=== PATIENT | male | born 1990 | race Caucasian/White ===

== ENCOUNTER 2017-10-11 00:05 | Inpatient (IN) | payer OTHER ==
[2017-10-11] MEDS ORDERED: FENTANYL CITRATE INJ/PF 100 MCG/2 ML AMPUL ONE ×3 (00:08→05:30)
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
[2017-10-11] MEDS ORDERED: NORMAL SALINE 250 ML IV PRN ×2 (00:10)
[2017-10-11] MEDS ORDERED: MIDAZOLAM 2 MG/2 ML INJ ONE ×2 (00:25→05:30)
[2017-10-11] MEDS ORDERED: CEFAZOLIN 1 GM/D5W RTU 1 GM/50 ML RTUPB IV ONE (00:31)
[2017-10-11] MEDS ORDERED: MIDAZOLAM 2 MG/2 ML INJ IV ONE (00:31)
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
[2017-10-11 01:03] LABS: ABSOLUTE BASOPHILS # (AUTO) 0.1 10^3/uL (0.0-0.2); ABSOLUTE EOSINOPHILS # (AUTO) 0.1 10^3/uL (0.0-0.6); ABSOLUTE LYMPHOCYTES (AUTO) 2.9 10^3/uL (0.5-4.7); ABSOLUTE MONOCYTES (AUTO) 0.6 10^3/uL (0.1-1.4); ABSOLUTE NEUT (AUTO) 4.3 10^3/uL (1.7-8.2); EOSINOPHILS % (AUTO) 1.1 % (0-6); HEMATOCRIT 41.5 % (37.9-51.0); HEMOGLOBIN 14.1 g/dL (13.5-17.0); HGB HCT DIFFERENCE 0.8; LYMPHOCYTES % (AUTO) 36.3 % (13-45); MEAN CORPUSCULAR HEMOGLOBIN 31.9 pg (27.0-33.4); MEAN CORPUSCULAR HGB CONC 33.9 g/dL (32.0-36.0); MEAN CORPUSCULAR VOLUME 94 fl (80-97); RED BLOOD COUNT 4.41 10^6/uL (4.35-5.55); RED CELL DISTRIBUTION WIDTH 12.9 % (11.5-14.0); SEGMENTED NEUTROPHILS % (AUTO) 53.6 % (42-78)
[2017-10-11] MEDS ORDERED: HYDROMORPHONE HCL INJ/PF 2 MG/ML AMPULE IV PRN (01:19)
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
[2017-10-11] MEDS ORDERED: HYDROMORPHONE HCL INJ/PF 2 MG/ML AMPULE IV ONE (02:30)
[2017-10-11] MEDS ORDERED: FENTANYL CITRATE INJ/PF 100 MCG/2 ML AMPUL IV ONE (02:30)
[2017-10-11] MEDS ORDERED: NORMAL SALINE 1000 ML 1,000 ML IV ONE (02:31)
[2017-10-11] MEDS ORDERED: RINGERS SOLUTION,LACTATED 1,000 ML IV PRN (04:06)
[2017-10-11] MEDS ORDERED: CEFAZOLIN 2 GM/D5W RTU 2 GM/50 ML RTUPB IV PRN (04:09)
[2017-10-11] MEDS: HYDROMORPHONE HCL INJ/PF 2 MG/ML AMPULE IV PRN ×5 (04:29→20:25)
[2017-10-11] MEDS ORDERED: DEXAMETHASONE SOD PHOSPHATE INJ 4 MG/1 ML VIAL ONE (05:30)
[2017-10-11] MEDS ORDERED: IBUPROFEN INJ 800 MG/8 ML VIAL IV ONE (05:31)
[2017-10-11] MEDS ORDERED: ONDANSETRON HCL INJ/PF 4 MG/2 ML SDV ONE (05:31)
[2017-10-11] MEDS ORDERED: PROPOFOL INJ 200 MG/20 ML VIAL IV ONE (05:31)
[2017-10-11] MEDS ORDERED: MORPHINE SULFATE 10 MG/ML INJ ONE (05:31)
[2017-10-11] MEDS ORDERED: CEFAZOLIN INJ 1 GM VIAL ONE (06:02)
[2017-10-11] MEDS ORDERED: BUPIVACAINE HCL 0.5%-EPI 1:200000 INJ/PF 30 ML VIAL INJ ONE (06:04)
[2017-10-11] MEDS ORDERED: PROMETHAZINE HCL INJ 25 MG/1 ML VIAL IV PRN ×2 (06:14)
[2017-10-11] MEDS ORDERED: MEPERIDINE HCL/PF INJ 25 MG/1 ML DISP.SYRIN IV PRN (06:14)
[2017-10-11] MEDS ORDERED: DIPHENHYDRAMINE HCL 50 MG/ML VIAL IV PRN (06:14)
[2017-10-11] MEDS ORDERED: FENTANYL CITRATE INJ/PF 100 MCG/2 ML AMPUL IV PRN ×3 (06:14)
[2017-10-11] MEDS ORDERED: MORPHINE SULFATE 10 MG/ML INJ IV PRN (06:14)
[2017-10-11] MEDS ORDERED: BUPIVACAINE HCL 0.5%-EPI 1:200000 INJ/PF 30 ML VIAL ONE (06:15)
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
[2017-10-11] MEDS ORDERED: SUCCINYLCHOLINE CHLORIDE INJ 200 MG/10 ML VIAL ONE (07:29)
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
[2017-10-11] MEDS: OXYCODONE HCL IR 5 MG TABLET PO PRN ×2 (14:23→23:20)
[2017-10-11] MEDS: CEFAZOLIN 2 GM/D5W RTU 2 GM/50 ML RTUPB IV SCH ×2 (14:23→22:17)
[2017-10-11] MEDS ORDERED: ACETAMINOPHEN 325 MG TABLET PO ONE (15:00)
[2017-10-11] MEDS ORDERED: GABAPENTIN 300 MG CAPSULE PO ONE (15:00)
[2017-10-11] MEDS: GABAPENTIN 300 MG CAPSULE PO SCH (22:18)
[2017-10-11] MEDS: RIVAROXABAN 10 MG TABLET PO SCH (22:18)
[2017-10-11] MEDS: ACETAMINOPHEN 325 MG TABLET PO SCH (22:18)
[2017-10-12] MEDS: HYDROMORPHONE HCL INJ/PF 2 MG/ML AMPULE IV PRN (04:13)
[2017-10-12] MEDS: ACETAMINOPHEN 325 MG TABLET PO SCH ×3 (05:55→21:22)
[2017-10-12] MEDS: GABAPENTIN 300 MG CAPSULE PO SCH ×3 (05:56→21:22)
[2017-10-12 06:16] LABS: ABSOLUTE LYMPHOCYTES (AUTO) 2.3 10^3/uL (0.5-4.7); ABSOLUTE MONOCYTES (AUTO) 1.5 10^3/uL (0.1-1.4); ABSOLUTE NEUT (AUTO) 5.6 10^3/uL (1.7-8.2); BASOPHILS % (AUTO) 0.3 % (0-2); EOSINOPHILS % (AUTO) 0.3 % (0-6); HEMATOCRIT 29.3 % (37.9-51.0); HGB HCT DIFFERENCE 1.6; LYMPHOCYTES % (AUTO) 24.2 % (13-45); MEAN CORPUSCULAR HEMOGLOBIN 32.4 pg (27.0-33.4); MEAN CORPUSCULAR HGB CONC 35.1 g/dL (32.0-36.0); MEAN CORPUSCULAR VOLUME 92 fl (80-97); MONOCYTES % (AUTO) 16.2 % (3-13); RED BLOOD COUNT 3.17 10^6/uL (4.35-5.55); RED CELL DISTRIBUTION WIDTH 12.9 % (11.5-14.0); WHITE BLOOD COUNT 9.5 10^3/uL (4.0-10.5)
[2017-10-12 06:22] LABS: HEMOGLOBIN 10.3 g/dL (13.5-17.0)
[2017-10-12 06:26] LABS: ANION GAP 9 (5-19); BLOOD UREA NITROGEN 10 mg/dL (7-20); CALCIUM 8.9 mg/dL (8.4-10.2); CARBON DIOXIDE 30 mmol/L (22-30); CHLORIDE 104 mmol/L (98-107); CREATININE RESULT 0.73 mg/dL (0.52-1.25); GLUCOSE 105 mg/dL (75-110); POTASSIUM 4.2 mmol/L (3.6-5.0); SODIUM 142.7 mmol/L (137-145)
[2017-10-12] MEDS: OXYCODONE HCL IR 5 MG TABLET PO PRN ×3 (08:20→20:12)
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
[2017-10-12] MEDS: RIVAROXABAN 10 MG TABLET PO SCH (21:22)
[2017-10-13] MEDS: OXYCODONE HCL IR 5 MG TABLET PO PRN ×4 (02:03→21:41)
[2017-10-13] MEDS ORDERED: MORPHINE SULFATE 10 MG/5 ML ORAL SOLUTION UDCUP PO ONE (05:15)
[2017-10-13] MEDS: ACETAMINOPHEN 325 MG TABLET PO SCH ×3 (05:17→21:40)
[2017-10-13] MEDS: GABAPENTIN 300 MG CAPSULE PO SCH ×3 (05:17→21:41)
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
[2017-10-13] MEDS: CYCLOBENZAPRINE HCL 10 MG TABLET PO PRN ×2 (13:09→21:04)
[2017-10-13 15:57] LABS: ALANINE AMINOTRANSFERASE 57 U/L (21-72); ALBUMIN 3.8 g/dL (3.5-5.0); ALKALINE PHOSPHATASE 55 U/L (38-126); ANION GAP 10 (5-19); ASPARTATE AMINO TRANSFERASE 40 U/L (17-59); BILIRUBIN,DIRECT 0.3 mg/dL (0.0-0.4); BILIRUBIN,TOTAL 0.8 mg/dL (0.2-1.3); BLOOD UREA NITROGEN 9 mg/dL (7-20); CARBON DIOXIDE 32 mmol/L (22-30); CHLORIDE 97 mmol/L (98-107); CREATININE RESULT 0.89 mg/dL (0.52-1.25); GLUCOSE 132 mg/dL (75-110); POTASSIUM 4.1 mmol/L (3.6-5.0); SODIUM 139.3 mmol/L (137-145); TOTAL PROTEIN 6.5 g/dL (6.3-8.2)
[2017-10-13 16:32] LABS: C-REACTIVE PROTEIN 272.5 mg/L (<10.0)
[2017-10-13 17:57] LABS: ABSOLUTE BASOPHILS # (AUTO) 0.1 10^3/uL (0.0-0.2); ABSOLUTE LYMPHOCYTES (AUTO) 1.9 10^3/uL (0.5-4.7); ABSOLUTE MONOCYTES (AUTO) 1.5 10^3/uL (0.1-1.4); ABSOLUTE NEUT (AUTO) 5.5 10^3/uL (1.7-8.2); BASOPHILS % (AUTO) 0.6 % (0-2); EOSINOPHILS % (AUTO) 0.3 % (0-6); HEMOGLOBIN 10.7 g/dL (13.5-17.0); HGB HCT DIFFERENCE 1.1; LYMPHOCYTES % (AUTO) 21.2 % (13-45); MEAN CORPUSCULAR HEMOGLOBIN 32.2 pg (27.0-33.4); MEAN CORPUSCULAR HGB CONC 34.6 g/dL (32.0-36.0); MEAN CORPUSCULAR VOLUME 93 fl (80-97); MONOCYTES % (AUTO) 16.4 % (3-13); RED BLOOD COUNT 3.33 10^6/uL (4.35-5.55); RED CELL DISTRIBUTION WIDTH 12.9 % (11.5-14.0); SEGMENTED NEUTROPHILS % (AUTO) 61.5 % (42-78)
[2017-10-13] MEDS ORDERED: IBUPROFEN INJ 800 MG/8 ML VIAL IV ONE (19:37)
[2017-10-13] MEDS: IBUPROFEN 800 MG in NORMAL SALINE 250 ML IV SCH (20:04)
[2017-10-13] MEDS: RIVAROXABAN 10 MG TABLET PO SCH (21:41)
[2017-10-14] MEDS: IBUPROFEN 800 MG in NORMAL SALINE 250 ML IV SCH ×3 (03:37→22:05)
[2017-10-14] MEDS: OXYCODONE HCL IR 5 MG TABLET PO PRN ×3 (03:38→18:15)
[2017-10-14] MEDS: GABAPENTIN 300 MG CAPSULE PO SCH ×3 (05:17→22:03)
[2017-10-14] MEDS: ACETAMINOPHEN 325 MG TABLET PO SCH ×3 (05:17→22:04)
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
[2017-10-14] MEDS ORDERED: POLYETHYLENE GLYCOL 3350 POWDER 17 GM/1 PACKET PO ONE (19:15)
[2017-10-14] MEDS: CYCLOBENZAPRINE HCL 10 MG TABLET PO PRN (22:04)
[2017-10-14] MEDS: RIVAROXABAN 10 MG TABLET PO SCH (22:04)
[2017-10-14] MEDS: DIPHENHYDRAMINE HCL 25 MG CAPSULE PO PRN (22:30)
[2017-10-15] MEDS: OXYCODONE HCL IR 5 MG TABLET PO PRN ×4 (00:27→21:44)
[2017-10-15] MEDS: ACETAMINOPHEN 325 MG TABLET PO SCH ×3 (05:38→21:15)
[2017-10-15] MEDS: IBUPROFEN 800 MG in NORMAL SALINE 250 ML IV SCH ×3 (05:39→21:16)
[2017-10-15] MEDS: GABAPENTIN 300 MG CAPSULE PO SCH ×3 (05:39→21:15)
[2017-10-15] MEDS: CYCLOBENZAPRINE HCL 10 MG TABLET PO PRN ×2 (05:39→20:23)
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
[2017-10-15] MEDS: POLYETHYLENE GLYCOL 3350 POWDER 17 GM/1 PACKET PO SCH (09:33)
[2017-10-15] MEDS: DIPHENHYDRAMINE HCL 25 MG CAPSULE PO PRN (20:23)
[2017-10-15] MEDS: RIVAROXABAN 10 MG TABLET PO SCH (21:15)
[2017-10-15] MEDS ORDERED: DIPHENHYDRAMINE HCL 50 MG/ML VIAL IV ONE (22:00)
[2017-10-15] MEDS ORDERED: LORAZEPAM INJ 2 MG/1 ML VIAL IV PRN (22:37)
[2017-10-15] MEDS ORDERED: LORAZEPAM INJ 2 MG/1 ML VIAL IV ONE (22:45)
[2017-10-16] MEDS: GABAPENTIN 300 MG CAPSULE PO SCH ×2 (05:16→15:04)
[2017-10-16] MEDS: IBUPROFEN 800 MG in NORMAL SALINE 250 ML IV SCH ×2 (05:17→15:40)
[2017-10-16] MEDS: ACETAMINOPHEN 325 MG TABLET PO SCH ×2 (05:17→15:04)
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
[2017-10-16] MEDS: CYCLOBENZAPRINE HCL 10 MG TABLET PO PRN ×2 (07:44→15:10)
[2017-10-16] MEDS: POLYETHYLENE GLYCOL 3350 POWDER 17 GM/1 PACKET PO SCH (10:01)
[2017-10-16] MEDS: OXYCODONE HCL IR 5 MG TABLET PO PRN ×2 (12:05→18:05)
[2017-10-16 16:49] VITALS: BP 141/81
== END 2017-10-16 21:37 | disposition home health service (06) | DRG 482 ==
LOC: ER 00:05 → EH 01:36 → UNDOADMOB 01:36 → 4S 02:59 → EH 02:59 → OBSVTOIN 04:46 → 4S 04:46 → INTOOBSV 04:46
PROVIDERS: ADMIT Orthopaedic Surgery; ATTEND Orthopaedic Surgery
PROC: 0QSC04Z Reposition Left Lower Femur with Internal Fixation Device, Open Approach (ICD-10-PCS; principal; 2017-10-11 06:00)
DX: S72.4 Fracture of lower end of femur (principal); W32.0XXA Accidental handgun discharge, initial encounter; Y93.9 Activity, unspecified; Y92.9 Unspecified place or not applicable; Y99.9 Unspecified external cause status; Z88.2 Allergy status to sulfonamides; Z88.8 Allergy status to other drugs, medicaments and biological substances; Z72.0 Tobacco use
CPT/HCPCS: 01360; 36415; 80048; 80053; 85025; 85652; 86140; 86850; 86900; 86901; 86920; 96365; 96375; 99291; J0330; J0690; J1100; J1170; J1200; J1741; J2060; J2250; J2270; J2405; J2704; J3010; J3490; J7030; J7050

== ENCOUNTER 2017-12-18 08:12 | Day surgery (SDC) | payer OTHER ==
[2017-12-17 10:52] LABS: ABSOLUTE BASOPHILS # (AUTO) 0.1 10^3/uL (0.0-0.2); ABSOLUTE EOSINOPHILS # (AUTO) 0.1 10^3/uL (0.0-0.6); ABSOLUTE LYMPHOCYTES (AUTO) 2.7 10^3/uL (0.5-4.7); ABSOLUTE MONOCYTES (AUTO) 0.6 10^3/uL (0.1-1.4); ABSOLUTE NEUT (AUTO) 2.5 10^3/uL (1.7-8.2); EOSINOPHILS % (AUTO) 1.9 % (0-6); HEMATOCRIT 41.4 % (37.9-51.0); HEMOGLOBIN 13.7 g/dL (13.5-17.0); LYMPHOCYTES % (AUTO) 44.3 % (13-45); MEAN CORPUSCULAR HEMOGLOBIN 29.5 pg (27.0-33.4); MEAN CORPUSCULAR HGB CONC 33.1 g/dL (32.0-36.0); MEAN CORPUSCULAR VOLUME 89 fl (80-97); MONOCYTES % (AUTO) 10.7 % (3-13); PLATELET COUNT 394 10^3/uL (150-450); RED BLOOD COUNT 4.65 10^6/uL (4.35-5.55); RED CELL DISTRIBUTION WIDTH 14.1 % (11.5-14.0); SEGMENTED NEUTROPHILS % (AUTO) 42.1 % (42-78); TOTAL CELLS COUNTED % (AUTO) 100 %
[2017-12-17 10:55] LABS: APPEARANCE,URINE CLEAR; BILIRUBIN,URINE NEGATIVE (NEGATIVE); COLOR,URINE YELLOW; GLUCOSE, URINE NEGATIVE (NEGATIVE); KETONES,URINE NEGATIVE (NEGATIVE); LEUKOCYTE ESTERASE,URINE NEGATIVE (NEGATIVE); NITRITE,URINE NEGATIVE (NEGATIVE); PROTEIN,URINE 30 mg/dL (NEGATIVE); URINE SPECIFIC GRAVITY 1.029; UROBILINOGEN,URINE NEGATIVE mg/dL (<2.0)
[2017-12-17 11:24] LABS: ANION GAP 13 (5-19); BLOOD UREA NITROGEN 18 mg/dL (7-20); CALCIUM 10.6 mg/dL (8.4-10.2); CARBON DIOXIDE 28 mmol/L (22-30); CHLORIDE 103 mmol/L (98-107); GLUCOSE 93 mg/dL (75-110); POTASSIUM 4.8 mmol/L (3.6-5.0); SODIUM 143.5 mmol/L (137-145)
[~2017-12-18 08:12] MED LIST: CEFAZOLIN 2 GM/D5W RTU 2 GM/50 ML RTUPB IV PRN; LACTATED RINGERS 1000 ML IV PRN; LIDOCAINE 0.5% INJ-PF (5 MG/ML) 50 ML SDV SUBCUT PRN
[2017-12-18] MEDS ORDERED: BUPIVACAINE HCL 0.5%-EPI 1:200000 INJ/PF 30 ML VIAL ONE (10:25)
[2017-12-18] MEDS ORDERED: MIDAZOLAM 2 MG/2 ML INJ ONE (11:27)
[2017-12-18] MEDS ORDERED: PROPOFOL INJ 200 MG/20 ML VIAL IV ONE (11:28)
[2017-12-18] MEDS ORDERED: FENTANYL CITRATE INJ/PF 100 MCG/2 ML AMPUL ONE (11:28)
[2017-12-18] MEDS ORDERED: OXYCODONE-ACETAMINOPHEN 5-325 MG TABLET PO PRN ×2 (11:41)
[2017-12-18] MEDS ORDERED: PROMETHAZINE HCL INJ 25 MG/1 ML VIAL IV PRN ×2 (11:41)
[2017-12-18] MEDS ORDERED: DIPHENHYDRAMINE HCL 50 MG/ML VIAL IV PRN (11:41)
[2017-12-18] MEDS ORDERED: MEPERIDINE HCL/PF INJ 25 MG/1 ML DISP.SYRIN IV PRN (11:41)
[2017-12-18] MEDS ORDERED: MORPHINE SULFATE 10 MG/ML INJ IV PRN (11:41)
[2017-12-18] MEDS ORDERED: FENTANYL CITRATE INJ/PF 100 MCG/2 ML AMPUL IV PRN ×3 (11:41)
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
[2017-12-18] MEDS ORDERED: OXYCODONE HCL IR 5 MG TABLET PO PRN (12:48)
[2017-12-18] MEDS ORDERED: ONDANSETRON 4 MG TAB.RAPDIS SL PRN (12:48)
[2017-12-18] MEDS ORDERED: OXYCODONE HCL IR 5 MG TABLET ONE (12:59)
--- NOTE | 2017-12-18 13:46 | RADIOLOGY REPORT (SQ) ---
EXAM DESCRIPTION: KNEE LEFT 2 VIEWS; NO CHG FLUORO COMPLETED DATE/TIME: 12/18/2017 1:15 pm; 12/18/2017 1:14 pm REASON FOR STUDY: HARDWARE REMOVAL LEFT KNEE ASST WITH FLUORO IN OR S72.402C UNSP FX LOWER END OF L EFT FEMUR, INIT FOR OPN FX TY COMPARISON: 12/11/2016 left knee films FLUOROSCOPY TIME: Less than 2 seconds 1 digital C-arm image saved to PACS. TECHNIQUE: Intra-operative images acquired during surgical procedure to evaluate progress. NUMBER OF IMAGES: 1 digital C-arm image LIMITATIONS: None. FINDINGS: Intra procedural imaging and fluoro during stabilization of distal left femur intercondyla r fracture. Please see the operative report for further details IMPRESSION: Intra procedural imaging and fluoro COMMENT: Quality ID 145: Final reports for procedures using fluoroscopy that document radiation exp osure indices, or exposure time and number of fluorographic images (if radiation exposure indices are not available) Please consult full operative report of the attending physician for description of the procedure. TECHNICAL DOCUMENTATION: JOB ID: [id number] [employer]- All Rights Reserved
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
[2017-12-18 14:06] VITALS: BP 128/79
== END 2017-12-18 14:15 | disposition home or self-care (01) ==
LOC: OROUT 08:12
PROVIDERS: ATTEND Orthopaedic Surgery
PROC: 0QP704Z Removal of Internal Fixation Device from Left Upper Femur, Open Approach (ICD-10-PCS; principal; 2017-12-18 10:30)
DX: S72.402C Unspecified fracture of lower end of left femur, initial encounter for open fracture type IIIA, IIIB, or IIIC (principal); W34.00XA Accidental discharge from unspecified firearms or gun, initial encounter; Z47.2 Encounter for removal of internal fixation device; M79.605 Pain in left leg; F17.220 Nicotine dependence, chewing tobacco, uncomplicated; Z88.2 Allergy status to sulfonamides; Z88.8 Allergy status to other drugs, medicaments and biological substances; Z79.1 Long term (current) use of non-steroidal anti-inflammatories (NSAID); Z79.891 Long term (current) use of opiate analgesic; Z86.14 Personal history of Methicillin resistant Staphylococcus aureus infection
CPT/HCPCS: 36415; 85025; 80048; 81001; 73560; 20680; J2250; J3490; J3010; J2704; J0690; 01360

== ENCOUNTER → 2018-06-05 | Outpatient (CLI) | payer OTHER, BC ==
[2018-06-05 09:36] LABS: ABSOLUTE BASOPHILS # (AUTO) 0.1 10^3/uL (0.0-0.2); ABSOLUTE EOSINOPHILS # (AUTO) 0.4 10^3/uL (0.0-0.6); ABSOLUTE LYMPHOCYTES (AUTO) 2.3 10^3/uL (0.5-4.7); ABSOLUTE MONOCYTES (AUTO) 0.5 10^3/uL (0.1-1.4); ABSOLUTE NEUT (AUTO) 2.7 10^3/uL (1.7-8.2); BASOPHILS % (AUTO) 1.5 % (0-2); EOSINOPHILS % (AUTO) 5.9 % (0-6); HEMATOCRIT 39.6 % (37.9-51.0); HEMOGLOBIN 13.5 g/dL (13.5-17.0); LYMPHOCYTES % (AUTO) 38.4 % (13-45); MEAN CORPUSCULAR HEMOGLOBIN 31.4 pg (27.0-33.4); MEAN CORPUSCULAR HGB CONC 34.2 g/dL (32.0-36.0); MEAN CORPUSCULAR VOLUME 92 fl (80-97); MONOCYTES % (AUTO) 8.9 % (3-13); PLATELET COUNT 308 10^3/uL (150-450); RED BLOOD COUNT 4.31 10^6/uL (4.35-5.55); RED CELL DISTRIBUTION WIDTH 12.9 % (11.5-14.0); SEGMENTED NEUTROPHILS % (AUTO) 45.3 % (42-78); TOTAL CELLS COUNTED % (AUTO) 100 %
[2018-06-05 09:51] LABS: APPEARANCE,URINE SLIGHTLY-CLOUDY; BILIRUBIN,URINE NEGATIVE (NEGATIVE); COLOR,URINE YELLOW; GLUCOSE, URINE NEGATIVE (NEGATIVE); KETONES,URINE NEGATIVE (NEGATIVE); LEUKOCYTE ESTERASE,URINE NEGATIVE (NEGATIVE); NITRITE,URINE NEGATIVE (NEGATIVE); PROTEIN,URINE NEGATIVE (NEGATIVE); URINE SPECIFIC GRAVITY 1.028; UROBILINOGEN,URINE NEGATIVE mg/dL (<2.0)
[2018-06-05 09:58] LABS: ANION GAP 14 (5-19); BLOOD UREA NITROGEN 16 mg/dL (7-20); CALCIUM 9.1 mg/dL (8.4-10.2); CARBON DIOXIDE 26 mmol/L (22-30); CHLORIDE 103 mmol/L (98-107); GLUCOSE 152 mg/dL (75-110); POTASSIUM 3.7 mmol/L (3.6-5.0); SODIUM 142.9 mmol/L (137-145)
--- NOTE | 2018-06-05 10:09 | RADIOLOGY REPORT (SQ) ---
EXAM DESCRIPTION: CHEST PA/LATERAL COMPLETED DATE/TIME: 06/05/2018 9:28 am REASON FOR STUDY: PRE-OP COMPARISON: None. EXAM PARAMETERS: NUMBER OF VIEWS: two views TECHNIQUE: Digital Frontal and Lateral radiographic views of the chest acquired. RADIATION DOSE: NA LIMITATIONS: none FINDINGS: LUNGS AND PLEURA: No opacities, masses or pneumothorax. No pleural effusion. MEDIASTINUM AND HILAR STRUCTURES: No masses or contour abnormalities. HEART AND VASCULAR STRUCTURES: Heart normal size. No evidence for failure. BONES: No acute findings. HARDWARE: None in the chest. OTHER: No other significant finding. IMPRESSION: NO SIGNIFICANT RADIOGRAPHIC FINDING IN THE CHEST. TECHNICAL DOCUMENTATION: JOB ID: [id number] [email or web address]- All Rights Reserved Reading location - IP/workstation name: [email or web address]
--- NOTE | 2018-06-05 13:34 | EKG REPORT ---
SEVERITY:- NORMAL ECG - SINUS RHYTHM ST ELEV, PROBABLE NORMAL EARLY REPOL PATTERN : Confirmed by: Leon Andersen MD 05-Jun-2018 13:33:05
== END ==
LOC: OD 08:45
PROVIDERS: ATTEND Orthopaedic Surgery
DX: Z01.810 Encounter for preprocedural cardiovascular examination (principal); Z01.812 Encounter for preprocedural laboratory examination; Z01.818 Encounter for other preprocedural examination
CPT/HCPCS: 36415; 71046; 80048; 81001; 85025; 93005; 93010

== ENCOUNTER 2018-06-19 08:25 | Day surgery (SDC) | payer BC, OTHER ==
[~2018-06-19 08:25] MED LIST changes: -LACTATED RINGERS 1000 ML IV PRN; -LIDOCAINE 0.5% INJ-PF (5 MG/ML) 50 ML SDV SUBCUT PRN
[2018-06-19] MEDS ORDERED: BUPIVACAINE HCL 0.5 % INJ/PF 30 ML SDV ONE (09:38)
[2018-06-19] MEDS ORDERED: DEXAMETHASONE SOD PHOSPHATE INJ 4 MG/1 ML VIAL ONE (10:19)
[2018-06-19] MEDS ORDERED: FENTANYL CITRATE INJ/PF 250 MCG/5 ML AMPULE ONE (10:19)
[2018-06-19] MEDS ORDERED: MIDAZOLAM 2 MG/2 ML INJ ONE (10:19)
[2018-06-19] MEDS ORDERED: LIDOCAINE 2% INJ-PF (20 MG/ML) 10 ML AMPUL ONE (10:19)
[2018-06-19] MEDS ORDERED: PROPOFOL INJ 200 MG/20 ML VIAL IV ONE (10:20)
[2018-06-19] MEDS ORDERED: ONDANSETRON HCL INJ/PF 4 MG/2 ML SDV ONE (10:20)
[2018-06-19] MEDS ORDERED: ACETAMINOPHEN 1,000 MG/100 ML RTUPB IV ONE (10:20)
[2018-06-19] MEDS ORDERED: DIPHENHYDRAMINE HCL 50 MG/ML VIAL IV PRN (10:58)
[2018-06-19] MEDS ORDERED: FENTANYL CITRATE INJ/PF 100 MCG/2 ML AMPUL IV PRN ×3 (10:58)
[2018-06-19] MEDS ORDERED: OXYCODONE-ACETAMINOPHEN 5-325 MG TABLET PO PRN ×4 (10:58→12:48)
[2018-06-19] MEDS ORDERED: ONDANSETRON HCL INJ/PF 4 MG/2 ML SDV IV PRN (10:58)
[2018-06-19] MEDS ORDERED: MORPHINE SULFATE 10 MG/ML INJ IV PRN (10:58)
[2018-06-19] MEDS ORDERED: PROMETHAZINE HCL INJ 25 MG/1 ML VIAL IV PRN ×2 (10:58)
[2018-06-19] MEDS ORDERED: MEPERIDINE HCL/PF INJ 25 MG/1 ML DISP.SYRIN IV PRN (10:58)
--- NOTE | 2018-06-19 12:45 | Discharge Summary ---
Discharge Summary (SDC) - Discharge Final Diagnosis: Left knee arthroscopy with lysis of adhesions, manipulation under anesthesia, removal of hardware Date of Surgery: 06/19/18 Discharge Date: 06/19/18 Condition: Good Forms: ASU Anesthesia D/C Instruction, Discharge POC-Surgical Service Treatment or Instructions: Patient instructed to follow up in 10-14 days. Patient instructed to keep dressing dry clean and intact for 4 days and then allowed to remove. At that point patient can shower and apply Band-Aids as needed. Patient can weight-bear as tolerated and do range of motion exercises as tolerated. Crutches for support and safety. Can wean crutches once stable on his feet. Patient instructed to call the office if patient develops fevers chills redness and drainage from the surgical sites. Prescriptions: Oxycodone HCl/Acetaminophen [Percocet 5-325 mg Tablet] 1 - 2 tab PO ASDIR PRN # 25 tablet PRN Reason: Referrals: FREDY RASHID MD [ACTIVE STAFF] - 06/23/18 2:45 pm Discharge Diet: As Tolerated Respiratory Treatments at Home: Deep Breathing/Coughing Discharge Activity: No Driving - While taking narcotics, No Lifting/Push/Pulling , Slowly Increase Activity, Walk Frequently Home Care Assistance: None Needed Adaptive Devices on Discharge: Axillary Crutches Report the Following to Your Physician Immediately: Shortness of Breath, Increase in Pain, Fever over 101 Degrees, Unusual Bleeding, Redness, Swelling, Warmth, Increased Soreness, Drainage-Yellow, Drainage-Hernandez, Drainage-Green
--- NOTE | 2018-06-19 13:05 | Operative Report ---
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 manipulation under anesthesia. removal of hardware SURGEON: FREDY CERNA ANESTHESIA: GA TISSUE REMOVED OR ALTERED: none COMPLICATIONS: None ESTIMATED BLOOD LOSS: 20mL INTRAOPERATIVE FINDINGS: as above PROCEDURE: After receiving preoperative antibiotics in the holding area patient was brought to the operating room and was induced and intubated in supine position. Thigh tourniquet was applied to left lower extremity and the left lower extremity was prepped and draped in a normal sterile surgical fashion. Timeout was done identifying the left knee as the correct site. Cord percent Marcaine was injected in the anticipated portal sites and Esmarch was used to the extremity and tourniquet was inflated at 300 mmHg. With the knee flexed at 90 a 11 blade was used to establish the anterolateral portal and the scope was introduced and the capsule was distended with sterile saline solution. I used a spinal needle to anticipate placement of my anterior medial portal. Once I was satisfied I used an 11 blade and establish that portal. Probe was introduced and a diagnostic scope was done. I proceeded then to do my arthroscopy with distending the capsule with sterile saline solution. Noted immediately patient has scar tissue right over the suprapatellar pouch mostly on the medial aspect. Lateral aspect was intact. Patient did have scar tissue from the patella to the ACL and over the medial lateral femoral condyle. At this point I used the 4.0 mm shaver and I use my radio frequency ablator to then do the resection and lysis of adhesions. I also resected the scar tissue off of the femoral condyle and reestablish the gutter. Pictures were taken showing intact ACL and PCL as well as medial lateral meniscus. I then introduce 70 scope into the posterior aspect of the knee just going adjacent to the ACL. I then establish a posterior medial portal and then reflected and release the scar tissue off of the posterior capsule and reflecting it off of the posterior tibial plateau. Pictures were taken showing the before and after the release. At this point then fluid and this was removed and then with the use of C-arm I was able to identify the 2 percutaneous screws and was able to place K wires and after doing small incision. I used the same previous incisions. Procardia was used to remove scar tissue and expose the heads of the screws. I was able to use the cannulated screw removed successfully. C- arm pictures were taken to confirm that the screws were fully removed and no fractures. I manipulated the knee under anesthesia and was able to get him to about -5. He has full flexion. At this point and I proceeded to close my wounds using 3-0 nylon. I cleaned the extremity in Place Xeroform 4 x 4 dressing and soft roll followed by an Carlito bandage. Tourniquet was let down after 80 minutes. Drapes were removed and the patient was then extubated and sent to PACU in stable condition.
[2018-06-19] MEDS ORDERED: SUCCINYLCHOLINE CHLORIDE INJ 200 MG/10 ML VIAL ONE (13:24)
[2018-06-19 14:20] VITALS: BP 116/80
--- NOTE | 2018-06-19 17:15 | RADIOLOGY REPORT (SQ) ---
EXAM DESCRIPTION: KNEE LEFT 2 VIEWS; NO CHG FLUORO COMPLETED DATE/TIME: 06/19/2018 3:29 pm REASON FOR STUDY: LEFT KNEE HARDWARE REMOVAL T84.498A [facility] COMPL OF INTERNAL ORTH DEVICES, IMPLNT A ND GRA COMPARISON: 12/18/2017 FLUOROSCOPY TIME: 0.5 minutes 3 digital C-arm images saved to PACS. TECHNIQUE: Intra-operative images acquired during surgical procedure to evaluate progress. NUMBER OF IMAGES: 3 digital C-arm images saved to pac's LIMITATIONS: None. FINDINGS: Intra procedural fluoro and imaging during hardware removal. Please see the operative rep ort for further details IMPRESSION: Intra procedural imaging and fluoro COMMENT: Quality ID [id number]: Final reports for procedures using fluoroscopy that document radiation exp osure indices, or exposure time and number of fluorographic images (if radiation exposure indices are not available) Please consult full operative report of the attending physician for description of the procedure. TECHNICAL DOCUMENTATION: JOB ID: [id number] [employer]- All Rights Reserved Reading location - IP/workstation name: [email or web address]
--- NOTE | 2018-06-19 17:15 | RADIOLOGY REPORT (SQ) ---
EXAM DESCRIPTION: KNEE LEFT 2 VIEWS; NO CHG FLUORO COMPLETED DATE/TIME: 06/19/2018 3:29 pm REASON FOR STUDY: LEFT KNEE HARDWARE REMOVAL T84.498A [facility] COMPL OF INTERNAL ORTH DEVICES, IMPLNT A ND GRA COMPARISON: 12/18/2017 FLUOROSCOPY TIME: 0.5 minutes 3 digital C-arm images saved to PACS. TECHNIQUE: Intra-operative images acquired during surgical procedure to evaluate progress. NUMBER OF IMAGES: 3 digital C-arm images saved to pac's LIMITATIONS: None. FINDINGS: Intra procedural fluoro and imaging during hardware removal. Please see the operative rep ort for further details IMPRESSION: Intra procedural imaging and fluoro COMMENT: Quality ID 145: Final reports for procedures using fluoroscopy that document radiation exp osure indices, or exposure time and number of fluorographic images (if radiation exposure indices are not available) Please consult full operative report of the attending physician for description of the procedure. TECHNICAL DOCUMENTATION: JOB ID: [id number] [employer]- All Rights Reserved Reading location - IP/workstation name: [email or web address]
== END 2018-06-19 14:30 | disposition home or self-care (01) ==
LOC: OROUT 08:25
PROVIDERS: ATTEND Orthopaedic Surgery
DX: T84.498A Other mechanical complication of other internal orthopedic devices, implants and grafts, initial encounter (principal); Y83.8 Other surgical procedures as the cause of abnormal reaction of the patient, or of later complication, without mention of misadventure at the time of the procedure; M23.8X2 Other internal derangements of left knee; M24.662 Ankylosis, left knee; M62.81 Muscle weakness (generalized); I10 Essential (primary) hypertension; Z88.8 Allergy status to other drugs, medicaments and biological substances; Z88.2 Allergy status to sulfonamides; Z86.14 Personal history of Methicillin resistant Staphylococcus aureus infection
CPT/HCPCS: 73560; 20680; 29884; C1713; J2250; J3490 ×2; J1100; J3010; J0330; J2405; J2704; J0690; J0131; 01400